=== PATIENT | female | born 1965 | race Caucasian/White ===

== ENCOUNTER 2018-09-16 20:52 | Emergency (ER) | payer MEDICAID ==
[~2018-09-16] VITALS: Ht 165.1 cm; Wt 64.0 kg
[2018-09-16 21:01] VITALS: Ht 165.1 cm; Wt 64.0 kg
[2018-09-17 00:36] VITALS: BP 166/110
== END 2018-09-17 00:36 | disposition home or self-care (01) ==
LOC: ED 20:52
DX: S00.83XA Contusion of other part of head, initial encounter (principal); M79.10 Myalgia, unspecified site; Y04.8XXA Assault by other bodily force, initial encounter; Y93.89 Activity, other specified; Y92.89 Other specified places as the place of occurrence of the external cause; Y99.8 Other external cause status